=== PATIENT | female | born 1955 | race Caucasian/White ===

== ENCOUNTER → 2016-11-15 | Outpatient (CLI) | payer OTHER ==
[~2016-11-15] VITALS: Ht 160 cm; Wt 59.1 kg
[~2016-11-15] MED LIST: LEVO125T5 PO; OXYC1TAB9 PO
[2016-11-15 10:46] LABS: BLOOD UREA NITROGEN 9 mg/dL (7-18)
[2016-11-15 10:50] LABS: ASPARTATE AMINO TRANSFERASE 14 U/L (15-37)
== END | disposition home or self-care (01) ==
LOC: STAR 09:34 → EDSTATUS 11-18 11:30
PROVIDERS: ATTEND Surgery
DX: Z01.818 Encounter for other preprocedural examination (principal); M41.84 Other forms of scoliosis, thoracic region; Z87.891 Personal history of nicotine dependence
CPT/HCPCS: 36415; 71020; 80053; 85025; 93005

== ENCOUNTER 2016-11-25 08:45 | Observation (INO) | payer OTHER ==
[~2016-11-25] VITALS: Ht 160 cm; Wt 61.8 kg
[2016-11-25] MEDS ORDERED: LACTATED RINGERS 1,000 ML IV SCH (09:36)
[2016-11-25] MEDS ORDERED: GABAPENTIN 300 MG CAPSULE PO ONE (10:00)
[2016-11-25] MEDS ORDERED: ACETAMINOPHEN 500 MG TABLET PO ONE (10:00)
[2016-11-25 10:03] VITALS: BP 165/80
[2016-11-25] MEDS ORDERED: MIDAZOLAM 1 MG/ML, 2ML ONE (10:30)
[2016-11-25] MEDS ORDERED: FENTANYL PF 250 MCG/5ML ONE ×2 (10:30→14:22)
[2016-11-25] MEDS ORDERED: HYDROmorphone 1 MG/ML, 1ML IV PRN (13:30)
[2016-11-25] MEDS ORDERED: DIPHENHYDRAMINE 25 MG CAPSULE PO PRN (13:30)
[2016-11-25] MEDS ORDERED: ONDANSETRON 2MG/ML, 2ML IVPush PRN ×2 (13:30→14:00)
[2016-11-25] MEDS ORDERED: DIPHENHYDRAMINE 50 MG/ML, 1ML IV PRN (13:30)
[2016-11-25] MEDS ORDERED: PROPOFOL 10 MG/ML, 20ML ONE (13:43)
[2016-11-25] MEDS ORDERED: CEFAZOLIN 1,000 MG ONE (13:43)
[2016-11-25] MEDS ORDERED: SUCCINYLCHOLINE 20 MG/ML, 10ML ONE (13:43)
[2016-11-25] MEDS ORDERED: ONDANSETRON 2MG/ML, 2ML ONE (13:43)
[2016-11-25] MEDS ORDERED: DEXAMETHASONE 4 MG/ML, 1ML ONE (13:43)
[2016-11-25] MEDS ORDERED: ROCURONIUM 10 MG/ML ONE (13:43)
[2016-11-25] MEDS ORDERED: PROMETHAZINE 25 MG/ML, 1ML IV PRN (14:00)
[2016-11-25] MEDS ORDERED: OXYcodone 5 MG/5 ML ORAL.SOL UDC PO PRN (14:00)
[2016-11-25] MEDS ORDERED: MEPERIDINE/PF 25MG/0.5ML IVPush PRN (14:00)
[2016-11-25] MEDS ORDERED: FENTANYL PF 100 MCG/2ML IV PRN (14:00)
[2016-11-25] MEDS ORDERED: hydrALAzine 20 MG/ML, 1ML IV PRN (14:00)
[2016-11-25] MEDS ORDERED: LABETALOL 5MG/ML, 20ML IV PRN (14:00)
[2016-11-25] MEDS ORDERED: METOCLOPRAMIDE 5 MG/ML, 2ML IV PRN (14:00)
[2016-11-25 15:28] LABS: IOPTH BASELINE 109 pg/mL
[2016-11-25] MEDS ORDERED: HYDROmorphone 2 MG/ML, 1ML ONE (15:47)
[2016-11-25] MEDS ORDERED: OXYcodone 5 MG/5 ML ORAL.SOL UDC ONE (15:47)
[2016-11-25] MEDS: HYDROmorphone 1 MG/ML, 1ML IV PRN ×2 (15:53→16:03)
[2016-11-25] MEDS: OXYcodone/APAP 10/325MG TABLET PO PRN (19:29)
[2016-11-25] MEDS: POTASSIUM CHLORIDE 20 MEQ in D5%-0.45% NACL 1,000 ML IV SCH ×2 (20:00→21:52)
[2016-11-25 20:30] VITALS: BP 137/78
[2016-11-25 23:51] VITALS: BP 111/65
[2016-11-26 02:34] VITALS: BP 118/68
[2016-11-26] MEDS: OXYcodone/APAP 10/325MG TABLET PO PRN ×3 (04:05→13:28)
[2016-11-26 07:33] VITALS: BP 120/63
[2016-11-26] MEDS ORDERED: LEVOTHYROXINE 125 MCG TABLET PO SCH (09:00)
[2016-11-26] MEDS ORDERED: OXYC-302 PO (10:05)
[2016-11-26] MEDS: POTASSIUM CHLORIDE 20 MEQ in D5%-0.45% NACL 1,000 ML IV SCH (12:10)
[2016-11-26] MEDS ORDERED: CALC200T3 PO (12:40)
[2016-11-26] MEDS ORDERED: CALCIUM CARBONATE 500 MG TAB.CHEW PO PRN (13:00)
[2016-11-26] MEDS ORDERED: CALCIUM CARBONATE 500 MG TAB.CHEW PO SCH (13:00)
[2016-11-26 13:29] VITALS: BP 127/68
[2016-11-26] MEDS ORDERED: LEVO125T5 PO (14:52)
== END 2016-11-26 14:50 | disposition home or self-care (01) ==
LOC: OUT 08:45 → EDSTATUS 11:30 → ORIP 13:16 → 4NOR 16:39 → DCLOUNGE 11-26 14:25
PROVIDERS: ADMIT Surgery; ATTEND Surgery
DX: E21.0 Primary hyperparathyroidism (principal); E89.0 Postprocedural hypothyroidism
CPT/HCPCS: 36415; 60500; 78070; 82040; 82310; 83970; 88305; 88331; 95865; 95940; A9500; C1760; C1776; C9898; G0378; J0330; J0690; J1100; J1170; J2250; J2405; J2704; J3010; J7120

== ENCOUNTER 2016-12-07 09:14 | Emergency (ER) | payer OTHER ==
[~2016-12-07] VITALS: Ht 160 cm; Wt 58.1 kg
[~2016-12-07 09:14] MED LIST changes: +CALC200T3 PO; +OXYC-302 PO
[2016-12-07] MEDS ORDERED: SODIUM CHLORIDE 0.9% 1,000 ML IV ONE (09:48)
[2016-12-07] MEDS ORDERED: HYDROmorphone 1 MG/ML, 1ML IVPush PRN (10:00)
[2016-12-07] MEDS ORDERED: LORazepam 2 MG/ML, 1ML IVPush ONE (10:00)
[2016-12-07] MEDS ORDERED: ONDANSETRON 2MG/ML, 2ML IVPush ONE (10:00)
[2016-12-07] MEDS ORDERED: FAMOTIDINE 20 MG/2 ML IVP ONE (10:00)
[2016-12-07] MEDS ORDERED: HYDROmorphone 1 MG/ML, 1ML ONE (10:11)
[2016-12-07] MEDS ORDERED: LORazepam 2 MG/ML, 1ML ONE (10:11)
[2016-12-07] MEDS ORDERED: ONDANSETRON 2MG/ML, 2ML ONE (10:11)
[2016-12-07] MEDS ORDERED: FAMOTIDINE 20 MG/2 ML ONE (10:11)
[2016-12-07 10:47] LABS: ASPARTATE AMINO TRANSFERASE 20 U/L (15-37); BLOOD UREA NITROGEN 10 mg/dL (7-18)
[2016-12-07 11:25] VITALS: BP 166/86
== END 2016-12-07 12:33 | disposition home or self-care (01) ==
LOC: ED 10:05
DX: R10.84 Generalized abdominal pain (principal); Z88.1 Allergy status to other antibiotic agents; Z90.89 Acquired absence of other organs
CPT/HCPCS: 36415; 74022; 80053; 81003; 83605; 83690; 85025; 85610; 93005; 96361; 96374; 96375; 99285; J1170; J2405; J7030; S0028